=== PATIENT | female | born 1990 | race Hispanic/Latino ===

== ENCOUNTER 2022-11-27 10:45 | Inpatient (IN) | payer MEDICAID, OTHER ==
[2022-11-26 12:36] LABS: Hemoglobin 10.9 g/dL (12.0-15.5); Platelet Count 195 10x3/uL (150-450)
[2022-11-26 13:15] LABS: HBSAg Index 0.23 S/CO (0-0.99); Hep B Surf Ag Non-Reactive S/CO (NonReactive)
[2022-11-26 13:16] LABS: Syphilis Antibody Nonreactive (Nonreactive); Syphilis Antibody Index 0.03 S/CO (<1.00 Non-Reactive)
[2022-11-27 11:23] VITALS: BMI 33.2
[2022-11-27] MEDS ORDERED: NS w/ Oxytocin 30 units 500 ML IV SCH (11:28)
[2022-11-27] MEDS ORDERED: hydrALAZINE 20 MG/ML VIAL SLOW IVP PRN ×2 (11:28→17:10)
[2022-11-27] MEDS ORDERED: Bicitra 30 ML UDCUP PO PRN (11:28)
[2022-11-27] MEDS ORDERED: Tranexamic Acid 1,000 MG/10 ML VIAL IVP PRN (11:28)
[2022-11-27] MEDS ORDERED: Methylergonovine 0.2 MG/ML VIAL IM PRN (11:28)
[2022-11-27] MEDS ORDERED: Carboprost 250 MCG/ML AMP IM PRN (11:28)
[2022-11-27] MEDS ORDERED: CEFAZOLIN 2 GM in Sodium Chloride 0.9% 100 ML IVPB SCH (11:28)
[2022-11-27] MEDS ORDERED: Diphenoxylate HCl/Atropine Tablet PO PRN (11:28)
[2022-11-27] MEDS ORDERED: Lactated Ringer's 1,000 ML IV SCH (11:28)
[2022-11-27] MEDS ORDERED: Promethazine HCl 25 MG/ML VIAL IM PRN ×3 (11:28→17:10)
[2022-11-27] MEDS ORDERED: Ondansetron PF 4 MG/2 ML Vial IVP PRN ×3 (11:28→17:10)
[2022-11-27] MEDS ORDERED: Famotidine/PF 20 mg/2ml Vial SLOW IVP PRN (11:28)
[2022-11-27] MEDS ORDERED: Misoprostol 200 MCG TAB PR PRN (11:28)
[2022-11-27] MEDS ORDERED: Fentanyl 100 MCG/2 ML VIAL SLOW IVP PRN (12:19)
[2022-11-27] MEDS ORDERED: Meperidine HCl/PF 25 MG/ML VIAL SLOW IVP PRN (12:19)
[2022-11-27] MEDS ORDERED: Promethazine HCl 25 MG SUPP PR PRN (12:19)
[2022-11-27] MEDS ORDERED: Moisturizing Cream (Eucerin) 113 GM JAR TOP PRN (12:19)
[2022-11-27] MEDS ORDERED: Naloxone HCl 0.4 mg/ml Vial IV PRN (12:19)
[2022-11-27] MEDS ORDERED: diphenhydrAMINE 50 MG/ML VIAL IVP PRN (12:19)
[2022-11-27] MEDS ORDERED: Naloxone HCl 0.4 mg/ml Vial IVP PRN ×2 (12:19)
[2022-11-27] MEDS ORDERED: Ondansetron HCl/PF 4 MG/2 ML Vial IVP PRN (12:19)
[2022-11-27] MEDS ORDERED: Communication Order-Pharmacy FS SCH (12:30)
[2022-11-27] MEDS ORDERED: Ketorolac Tromethamine 30 MG/ML VIAL ONE (13:59)
[2022-11-27] MEDS ORDERED: Ondansetron PF 4 MG/2 ML Vial ONE (13:59)
[2022-11-27] MEDS ORDERED: Oxytocin 10 UNITS/ML VIAL ONE (13:59)
[2022-11-27] MEDS ORDERED: Phenylephrine 40 MG/NS 250 ML 250 ML ONE (13:59)
[2022-11-27] MEDS ORDERED: ePHEDrine Sulfate 50 MG/10 ML VIAL ONE (13:59)
[2022-11-27] MEDS ORDERED: Morphine PF 10 MG/10 ML VIAL ONE (13:59)
[2022-11-27] MEDS ORDERED: PHENYLEPHRINE-NS 100 MCG/ML 10 ML SYRINGE ONE (14:19)
[2022-11-27] MEDS ORDERED: fentaNYL 50 mcg/mL 1 mL Vial ONE (17:07)
[2022-11-27] MEDS ORDERED: Bisacodyl 10 MG SUPP PR PRN (17:10)
[2022-11-27] MEDS ORDERED: diphenhydrAMINE 25 MG CAP PO PRN (17:10)
[2022-11-27] MEDS ORDERED: Simethicone Chewable 80 MG TAB PO PRN (17:10)
[2022-11-27] MEDS ORDERED: HYDROcodone/Acetaminophen 5/325 mg Tablet PO PRN (17:10)
[2022-11-27] MEDS ORDERED: Boostrix 0.5 ML (Tdap) VIAL (>/=7 yrs of age) IM ONE (17:10)
[2022-11-27] MEDS ORDERED: Ketorolac Tromethamine 30 MG/ML VIAL IVP SCH (19:30)
[2022-11-27] MEDS ORDERED: Ketorolac Tromethamine 30 MG/ML VIAL IVP PRN (19:30)
[2022-11-27] MEDS: Docusate 100 MG CAP PO SCH (21:41)
[2022-11-27] MEDS: Ketorolac Tromethamine 30 MG/ML VIAL IVP SCH (21:42)
[2022-11-28] MEDS: Ferrous Sulfate 325 MG TAB PO SCH ×3 (00:28→21:50)
[2022-11-28] MEDS: Ketorolac Tromethamine 30 MG/ML VIAL IVP SCH ×3 (03:34→15:25)
[2022-11-28 04:12] LABS: Hemoglobin 9.7 g/dL (12.0-15.5); Mean Corpuscular HGB CONC 33.1 g/dL (32.0-36.0); Mean Corpuscular Hemoglobin 28.8 pg (27.0-33.0); Mean Corpuscular Volume 86.9 fl (81.6-98.3); Mean Platelet Volume 11.1 fl (7.4-10.4); Platelet Count 166 10x3/uL (150-450); RBC Distribution Width 13.5 % (11.5-14.5); Red Blood Cell (RBC) Count 3.37 10x6/uL (3.90-5.03); White Blood Cell (WBC) Count 9.2 10x3/uL (3.5-10.5)
[2022-11-28] MEDS: HYDROcodone/Acetaminophen 5/325 mg Tablet PO PRN ×2 (08:50→15:25)
[2022-11-28] MEDS: Docusate 100 MG CAP PO SCH ×2 (08:50→21:50)
[2022-11-28] MEDS: Ibuprofen 800 MG TAB PO SCH (21:50)
[2022-11-29] MEDS: Ibuprofen 800 MG TAB PO SCH ×3 (05:58→21:30)
[2022-11-29] MEDS: Ferrous Sulfate 325 MG TAB PO SCH ×2 (08:24→21:30)
[2022-11-29] MEDS: Docusate 100 MG CAP PO SCH ×2 (08:24→21:30)
[2022-11-30] MEDS: Ibuprofen 800 MG TAB PO SCH (06:15)
[2022-11-30] MEDS: Ferrous Sulfate 325 MG TAB PO SCH (08:59)
[2022-11-30] MEDS: Docusate 100 MG CAP PO SCH (08:59)
[2022-11-30 09:29] VITALS: BP 118/69; TEMP 97.8
== END 2022-11-30 11:40 | disposition home or self-care (01) | DRG 788 ==
LOC: CSHLD 10:45 → CSHPP 17:17
PROVIDERS: ADMIT Family Medicine; ATTEND Family Medicine
PROC: 10D00Z1 Extraction of Products of Conception, Low, Open Approach (ICD-10-PCS; principal; 2022-11-27)
PROC: 3E0P05Z Introduction of Adhesion Barrier into Female Reproductive, Open Approach (ICD-10-PCS; 2022-11-27)
DX: O34.211 Maternal care for low transverse scar from previous cesarean delivery (principal); O24.420 Gestational diabetes mellitus in childbirth, diet controlled; Z3A.39 39 weeks gestation of pregnancy; Z37.0 Single live birth
CPT/HCPCS: 36415; 51702; 85014; 85018; 85027; 85049; 86780; 86850; 86900; 86901; 87340; J1885; J2274; J2405; J2590; J3010; J3490; S0028

== ENCOUNTER 2022-12-27 10:15 | Emergency (ER) | payer SELFPAY | END 2022-12-27 10:41 | disposition home or self-care (01) | LOC: CSHERS 10:15 | DX: T81.89XA Other complications of procedures, not elsewhere classified, initial encounter (principal) | CPT/HCPCS: 99283 ==